=== PATIENT | male | born 1980 | race Two or more races ===

== ENCOUNTER 2019-12-14 14:02 | Emergency (ER) | payer SELFPAY ==
[~2019-12-14] VITALS: Ht 167.6 cm; Wt 79.0 kg
[2019-12-14 16:13] VITALS: BP 137/85
== END 2019-12-14 16:33 | disposition left against medical advice (07) ==
LOC: ER 14:02
DX: R06.02 Shortness of breath (principal); Z53.21 Procedure and treatment not carried out due to patient leaving prior to being seen by health care provider